=== PATIENT | female | born 1970 | race Caucasian/White ===

== ENCOUNTER 2023-01-03 13:40 | Emergency (ER) | payer MEDICARE, MEDICAID ==
[~2023-01-03] VITALS: Ht 175.3 cm; Wt 99.2 kg
[~2023-01-03 13:40] MED LIST: NO HOME MEDS
[2023-01-03 14:03] LABS: BASOPHILS # (AUTO) 0.1 X10'3 (0-0.2); BASOPHILS % (AUTO) 0.8 % (0-1); EOSINOPHILS # (AUTO) 0.1 X10'3 (0-0.9); EOSINOPHILS % (AUTO) 0.7 % (0-6); HEMATOCRIT 45.2 % (35.0-45.0); HEMOGLOBIN 15.3 g/dl (12.0-16.0); LYMPHOCYTES # (AUTO) 3.1 X10'3 (1.1-4.8); LYMPHOCYTES % (AUTO) 26.3 % (21-51); MEAN CORPUSCULAR HEMOGLOBIN 30.5 PG (27.0-31.0); MEAN CORPUSCULAR HGB CONC 33.9 g/dL (33.0-36.5); MEAN PLATELET VOLUME 8.8 FL (7.4-10.4); MONOCYTES # (AUTO) 0.7 X10'3 (0-0.9); MONOCYTES % (AUTO) 6.2 % (2-12); NEUTROPHILS # (AUTO) 7.9 X10'3 (1.8-7.7); PLATELET COUNT 340 X10'3 (140-440); RED BLOOD COUNT 5.02 X10'6 (4.20-5.60); RED CELL DISTRIBUTION WIDTH 13.7 % (11.5-14.5); WHITE BLOOD COUNT 11.9 X10'3 (4.5-11.0)
[2023-01-03 14:14] LABS: ALANINE AMINOTRANSFERASE 27 U/L (12-78); ALBUMIN 4.3 G/DL (3.4-5.0); ALBUMIN/GLOBULIN RATIO 1.1 (1.1-1.5); ALKALINE PHOSPHATASE 141 IU/L (46-116); ANION GAP 12 (8-16); ASPARTATE AMINO TRANSFERASE 17 U/L (10-37); BILIRUBIN,TOTAL 0.6 MG/DL (0.1-1.0); BLOOD UREA NITROGEN 9 MG/DL (7-18); BUN/CREATININE RATIO 8.3 (10.0-20.0); CALCIUM 9.8 MG/DL (8.5-10.1); CHLORIDE 102 MMOL/L (99-107); CREATININE 1.08 MG/DL (0.40-0.90); GLUCOSE 119 MG/DL (70-104); POTASSIUM 3.7 MMOL/L (3.5-5.1); SODIUM 142 MMOL/L (135-145); TOTAL CARBON DIOXIDE 27.9 MMOL/L (24-32); TOTAL PROTEIN 8.2 G/DL (6.4-8.2); eCRCL 62 ML/MIN; eGFR 53 ML/MIN
[2023-01-03 14:22] LABS: PRO BRAIN NATRIURETIC PEPTIDE < 30 PG/ML (0-125)
[2023-01-04 06:35] VITALS: TEMP 97.6
[2023-01-04 08:35] LABS: APTT 35 SECONDS (22-32); D-DIMER 0.25 MG/L FEU (0-0.50); INR 0.9 INR; PROTHROMBIN TIME 10.2 SECONDS (9.0-12.0)
[2023-01-04 10:23] VITALS: BP 127/81; PULSE 83; RESP 16; O2SAT 98
== END 2023-01-04 10:24 | disposition left against medical advice (07) ==
LOC: ER 13:40
DX: R55 Syncope and collapse (principal); R42 Dizziness and giddiness; R56.9 Unspecified convulsions; R00.0 Tachycardia, unspecified; R07.89 Other chest pain; G89.29 Other chronic pain; F10.10 Alcohol abuse, uncomplicated; Z98.890 Other specified postprocedural states; Z91.040 Latex allergy status; Y90.9 Presence of alcohol in blood, level not specified
CPT/HCPCS: 36415; 70450; 71045; 80053; 82948; 83735; 83880; 84484; 85025; 85379; 85610; 85730; 93005; 99285